=== PATIENT | male | born 1975 | race Caucasian/White ===

== ENCOUNTER 2019-08-01 15:22 | Emergency (ER) | payer OTHER ==
[~2019-08-01] VITALS: Ht 172.7 cm; Wt 95.3 kg
[2019-08-01 15:25] VITALS: Ht 172.7 cm; Wt 95.3 kg
[2019-08-01 17:06] VITALS: BP 153/92
== END 2019-08-01 17:06 | disposition home or self-care (01) ==
LOC: EDBD 15:22 → ED 15:22
DX: Z02.89 Encounter for other administrative examinations (principal)
CPT/HCPCS: 90715

== ENCOUNTER 2019-08-01 15:22 | Emergency (ER) | payer SELFPAY | END 2019-08-01 17:06 | disposition other institution (70) | LOC: ED 15:22 | DX: Z02.89 Encounter for other administrative examinations (principal) ==